=== PATIENT | female | born 1995 | race African-American/Black ===

== ENCOUNTER 2020-11-18 09:04 | Emergency (ER) | payer OTHER ==
[2020-11-18 10:13] LABS: BASOPHIL 0.4 % (0-2); EOSINOPHIL 1.7 % (0-5); HCT 41.4 % (37.0-47.0); HGB 13.3 g/dl (12.5-16.0); LYMPHOCYTE 23.5 % (15-48); MCH 29.8 pg (25.0-31.0); MCHC 32.1 g/dL (32.0-36.0); MCV 92.8 fL (78.0-100.0); MONOCYTE 4.5 % (0-12); NEUTROPHIL 69.7 % (41-80); NRBC 0; PLT 318 K/uL (150-400); RBC 4.46 M/uL (4.20-5.40); RDW 12.2 % (11.5-14.0); WBC 8.4 K/uL (4.0-10.5)
[2020-11-18 10:14] LABS: BILIRUBIN NEGATIVE (NEGATIVE); BLOOD TRACE-INTACT Ery/uL (NEGATIVE); CLARITY CLEAR (CLEAR); COLOR YELLOW (YELLOW); GLUCOSE (U) NORMAL (NORMAL); LEUKOCYTES NEGATIVE Leu/uL (NEGATIVE); NITRITE NEGATIVE (NEGATIVE); PROTEIN NEGATIVE (NEGATIVE); SPECIFIC GRAVITY >=1.030 (1.001-1.030); UROBILINOGEN 0.2 mg/dL (0.2-1.0)
[2020-11-18 10:20] LABS: BACTERIA TRACE
[2020-11-18 10:46] LABS: BUN/CREAT RATIO (CALC) 14.1 RATIO; CREATININE 0.64 mg/dL (0.51-0.95)
== END 2020-11-18 19:05 | disposition home or self-care (01) ==
LOC: FER 09:04
PROVIDERS: Emergency Medicine
DX: N93.8 Other specified abnormal uterine and vaginal bleeding (principal); R55 Syncope and collapse; R10.84 Generalized abdominal pain
CPT/HCPCS: 36415; 80048; 81001; 85025; 93005

== ENCOUNTER 2021-04-06 10:16 | Emergency (ER) | payer OTHER ==
[2021-04-06 11:46] LABS: BASOPHIL 0.2 % (0-2); EOSINOPHIL 1.2 % (0-5); HCT 31.9 % (37.0-47.0); HGB 10.8 g/dl (12.5-16.0); LYMPHOCYTE 16.3 % (15-48); MCH 30.3 pg (25.0-31.0); MCHC 33.9 g/dL (32.0-36.0); MCV 89.4 fL (78.0-100.0); MONOCYTE 6.1 % (0-12); NEUTROPHIL 75.7 % (41-80); NRBC 0; PLT 258 K/uL (150-400); RBC 3.57 M/uL (4.20-5.40); RDW 13.2 % (11.5-14.0); WBC 8.5 K/uL (4.0-10.5)
[2021-04-06 11:47] LABS: BILIRUBIN NEGATIVE (NEGATIVE); BLOOD NEGATIVE Ery/uL (NEGATIVE); CLARITY CLEAR (CLEAR); COLOR YELLOW (YELLOW); GLUCOSE (U) NORMAL (NORMAL); LEUKOCYTES 2+ Leu/uL (NEGATIVE); NITRITE NEGATIVE (NEGATIVE); PROTEIN TRACE (LOW) mg/dL (NEGATIVE); SPECIFIC GRAVITY 1.025 (1.001-1.030)
[2021-04-06 12:02] LABS: ALBUMIN 2.9 g/dL (3.4-5.0); BILIRUBIN - TOTAL 0.4 mg/dL (0.2-1.0); BUN/CREAT RATIO (CALC) 7.7 RATIO; C-REACTIVE PROTEIN 2.9 mg/dL (<=0.90); CREATININE 0.52 mg/dL (0.51-0.95); GLOBULIN (CALCULATION) 3.6 g/dL; POTASSIUM 3.9 mmol/L (3.5-5.1); TOTAL PROTEIN 6.5 g/dL (6.4-8.2)
[2021-04-06 12:06] LABS: BACTERIA 3+; SQUAMOUS EPITHELIAL CELLS >50
[2021-04-06] MEDS ORDERED: CEPHALEXIN500 M1 PO (13:21)
== END 2021-04-06 13:46 | disposition home or self-care (01) ==
LOC: FER 10:16
PROVIDERS: Emergency Medicine
DX: O99.891 Other specified diseases and conditions complicating pregnancy (principal); M54.5 Low back pain; Z3A.16 16 weeks gestation of pregnancy
CPT/HCPCS: 36415; 80053; 81001; 84145; 85025; 86140; 99283

== ENCOUNTER 2021-11-02 12:00 | Inpatient (IN) | payer OTHER ==
[~2021-11-02] VITALS: Ht 152.4 cm; Wt 64.6 kg
[~2021-11-02 12:00] MED LIST: CEPHALEXIN500 M1 PO
[2021-11-02 12:44] LABS: BASOPHIL 0.7 % (0-2); EOSINOPHIL 0 % (0-5); HCT 39.4 % (37.0-47.0); LYMPHOCYTE 4.1 % (15-48); MCH 27.8 pg (25.0-31.0); MCV 84.4 fL (78.0-100.0); MONOCYTE 3.9 % (0-12); MPV 9.8 fL (6.0-9.5); NEUTROPHIL 90.3 % (41-80); NRBC 0; PLT 346 K/uL (150-400); RBC 4.67 M/uL (4.20-5.40); RDW 15.9 % (11.5-14.0); WBC 22.7 K/uL (4.0-10.5)
[2021-11-02 13:09] LABS: LACTIC ACID 2.1 mmol/L (0.4-1.9)
[2021-11-02 13:12] LABS: ALBUMIN 3.4 g/dL (3.4-5.0); BILIRUBIN - TOTAL 0.7 mg/dL (0.2-1.0); BUN/CREAT RATIO (CALC) 11.2 RATIO; CREATININE 2.41 mg/dL (0.51-0.95); GLOBULIN (CALCULATION) 5.6 g/dL; POTASSIUM 3.1 mmol/L (3.5-5.1)
[2021-11-02 13:44] LABS: CORONAVIRUS 2019 SARS-COV-2 NEGATIVE (NEGATIVE); INFLUENZA A NAA NEGATIVE (NEGATIVE)
[2021-11-02 14:32] LABS: BILIRUBIN 1+ mg/dL (NEGATIVE); BLOOD 3+ Ery/uL (NEGATIVE); COLOR YELLOW (YELLOW); GLUCOSE (U) NORMAL (NORMAL); LEUKOCYTES NEGATIVE Leu/uL (NEGATIVE); NITRITE NEGATIVE (NEGATIVE); PROTEIN 3+ mg/dL (NEGATIVE); SPECIFIC GRAVITY >=1.030 (1.001-1.030); UROBILINOGEN 0.2 mg/dL (0.2-1.0)
[2021-11-02 14:34] LABS: HCG (URINE) SCREEN POSITIVE (NEGATIVE)
[2021-11-02 14:35] LABS: CLARITY CLOUDY (CLEAR)
[2021-11-02 14:43] LABS: BACTERIA 1+
[2021-11-02 14:44] LABS: AMORPHOUS URATES CRYSTALS MODERATE; GRANULAR CASTS LARGE
[2021-11-03 07:12] LABS: BASOPHIL 0.3 % (0-2); EOSINOPHIL 0 % (0-5); HCT 29.3 % (37.0-47.0); HGB 9.4 g/dl (12.5-16.0); LYMPHOCYTE 3.7 % (15-48); MCHC 32.1 g/dL (32.0-36.0); MCV 87.2 fL (78.0-100.0); MONOCYTE 2.2 % (0-12); MPV 10.2 fL (6.0-9.5); NRBC 0; PLT 288 K/uL (150-400); RBC 3.36 M/uL (4.20-5.40); RDW 16.5 % (11.5-14.0); WBC 20.7 K/uL (4.0-10.5)
[2021-11-03 07:28] LABS: ALBUMIN 2.3 g/dL (3.4-5.0); BILIRUBIN - TOTAL 0.5 mg/dL (0.2-1.0); BUN/CREAT RATIO (CALC) 17.2 RATIO; CREATININE 1.57 mg/dL (0.51-0.95); GLOBULIN (CALCULATION) 4.6 g/dL; POTASSIUM 3.1 mmol/L (3.5-5.1)
[2021-11-03 07:31] LABS: TOTAL PROTEIN 6.9 g/dL (6.4-8.2)
[2021-11-03 07:48] LABS: NEUTROPHIL 92.2 % (41-80)
[2021-11-03 18:15] LABS: MAGNESIUM 2.3 mg/dL (1.8-2.4); POTASSIUM 3.5 mmol/L (3.5-5.1)
[2021-11-04 06:52] LABS: BASOPHIL 0.2 % (0-2); EOSINOPHIL 0 % (0-5); HCT 29.1 % (37.0-47.0); HGB 9.6 g/dl (12.5-16.0); LYMPHOCYTE 3.8 % (15-48); MCH 27.9 pg (25.0-31.0); MCV 84.6 fL (78.0-100.0); MPV 10.3 fL (6.0-9.5); NEUTROPHIL 90.7 % (41-80); NRBC 0; PLT 363 K/uL (150-400); RBC 3.44 M/uL (4.20-5.40); RDW 16.6 % (11.5-14.0)
[2021-11-04 06:54] LABS: WBC 29.8 K/uL (4.0-10.5)
[2021-11-04 07:17] LABS: BUN/CREAT RATIO (CALC) 23.3 RATIO; CREATININE 1.16 mg/dL (0.51-0.95); MAGNESIUM 2.2 mg/dL (1.8-2.4); POTASSIUM 3.7 mmol/L (3.5-5.1)
[2021-11-06 07:04] LABS: BUN/CREAT RATIO (CALC) 15.5 RATIO; CREATININE 0.97 mg/dL (0.51-0.95); POTASSIUM 3.3 mmol/L (3.5-5.1)
[2021-11-06 07:14] LABS: BASOPHIL 0.3 % (0-2); EOSINOPHIL 0.5 % (0-5); HCT 29.9 % (37.0-47.0); HGB 9.6 g/dl (12.5-16.0); MCH 27.7 pg (25.0-31.0); MCHC 32.1 g/dL (32.0-36.0); MCV 86.2 fL (78.0-100.0); MONOCYTE 6.2 % (0-12); MPV 9.7 fL (6.0-9.5); NEUTROPHIL 81.4 % (41-80); NRBC 0; PLT 477 K/uL (150-400); RBC 3.47 M/uL (4.20-5.40); RDW 16.1 % (11.5-14.0); WBC 20.2 K/uL (4.0-10.5)
[2021-11-06] MEDS ORDERED: AUGMENTIN 875-1 EACH PO (12:36)
--- NOTE | 2021-11-06 15:23 | NUR ---
PT D/C TO HOME AWAITING RIDE. IV REMOVED, D/C INSTRUCTION GONE OVER WITH PATIENT, WITH UNDERSTANDING INSTRUCTIONS.
[2021-11-07] MEDS ORDERED: IBU400 MG PO (13:02)
== END 2021-11-06 15:38 | disposition home or self-care (01) | DRG 871 ==
LOC: FER 12:00 → FMS 11-03 01:56
PROVIDERS: Emergency Medicine; Family Medicine; Internal Medicine; Nurse Practitioner; Surgery; ADMIT Hospitalist
DX: A41.9 Sepsis, unspecified organism (principal); R65.21 Severe sepsis with septic shock; O90.3 Peripartum cardiomyopathy; N17.9 Acute kidney failure, unspecified; A09 Infectious gastroenteritis and colitis, unspecified; K92.1 Melena; J90 Pleural effusion, not elsewhere classified; R18.8 Other ascites; K50.90 Crohn's disease, unspecified, without complications; Z20.822 Contact with and (suspected) exposure to COVID-19; E87.6 Hypokalemia; F43.10 Post-traumatic stress disorder, unspecified; F32.A Depression, unspecified; D50.9 Iron deficiency anemia, unspecified; Z98.890 Other specified postprocedural states; Z86.16 Personal history of COVID-19
CPT/HCPCS: 36415; 71250; 80048; 80053; 81001; 83605; 83690; 83735; 83880; 84132; 84702; 84703; 85025; 86140; 87040; 87045; 87046; 87070; 87077; 87449; 93005; J1170; J2405; J2543; J2930; J3010; J3480; J7030; J7120; Q9967; U0002